=== PATIENT | female | born 1940 | race Caucasian/White ===

== ENCOUNTER → 2020-01-13 15:18 | Outpatient (CLI) | payer MEDICARE, OTHER, SELFPAY ==
[2016-12-24 23:02] VITALS: BMI 30.4
[2020-01-13 17:58] LABS: Absolute Lymphocyte Count 1.56 X10^3/uL (0.83-4.51); Absolute Neutrophil Count 2.5 X10^3/uL (2.0-7.7); Basophil# 0.04 X10^3/uL; Basophil% 0.8 % (0-1); Eosinophil# 0.32 X10^3/uL; Eosinophils% 6.3 % (0-5); Hematocrit 40.8 % (37-47); Hemoglobin 12.7 g/dL (12.0-15.0); Lymphocyte # 1.56 X10^3/ul (4.0); Mean Corp Hgb Conc 31.1 g/dL (32-36); Mean Corpuscular Hgb 28.3 pg (27.0-32.0); Mean Corpuscular Volume 91.1 fL (81-99); Mean Platelet Vol. 9.6 fl (6.2-12.0); Monocyte# 0.63 X10^3/uL; Monocyte% 12.5 % (0-10); NRBC Flagged by Analyzer 0 % (0-5); Neutrophil # 2.47 X10^3/uL (2.7-7.7); Platelet Count 301 K/mm3 (150-450); RBC Distribution Width SD 47.1 fl (35.1-43.9); Red Blood Count 4.48 M/mm3 (4.2-5.4)
[2020-01-14 07:29] LABS: SARS-COV-2 TOTAL ABS Reactive (Nonreactive)
== END ==
PROVIDERS: PCP Family Medicine; Referring Provider Dermatology Pediatric Dermatology; Visit Provider Dermatology Pediatric Dermatology
DX: L30.9 Dermatitis, unspecified (principal)
CPT/HCPCS: 36415; 85025; 86769

== ENCOUNTER → 2020-10-23 09:59 | Outpatient (CLI) | payer MEDICARE, OTHER, SELFPAY | PROVIDERS: PCP Family Medicine; Referring Provider Nurse Practitioner Family; Visit Provider Nurse Practitioner Family | DX: Z01.84 Encounter for antibody response examination (principal) | CPT/HCPCS: 36415; 86769 ==

== ENCOUNTER → 2024-09-24 | Outpatient (CLI) | payer OTHER, MEDICARE, SELFPAY ==
--- NOTE | 2024-09-24 16:54 | CT_ITS ---
PROCEDURE: SINUS/FACIAL BONE REASON FOR EXAM: SINUSITIS AND NASAL CONGESTION TECHNIQUE: CT of the paranasal sinuses without contrast. Coronal and Sagittal reconstruction series were provided. One or more dose reduction techniques were used (e.g., Automated exposure control, adjustment of the mA and/or kV according to patient size, use of iterative reconstruction technique). COMPARISON: None. FINDINGS: Sinuses: [id number] paranasal sinus mucosal thickening. There is complete opacification of the left sphenoid sinus with curvilinear hyperdense material in-situ. This likely represents sequela of inspissated secretions or fungal colonization. There is also mucoperiosteal reaction involving the left sphenoid sinus fitzpatrick. Findings likely secondary to chronic opacification. No air-fluid levels are noted. Bilateral ostiomeatal units are patent. Opacification of the left sphenoethmoidal recess. The right sphenoethmoidal recess and bilateral frontonasal recesses are within normal limits. Soft tissue: Soft tissue planes are within normal limits. The pre maxillary and retro antral soft tissues are within normal limits. Orbits: Bilateral lens replacements. Intracranial contents: Mild generalized volume loss with concordant ventricular enlargement. No extra-axial collection. Turbinates and nasal septum: Turbinates are within normal limits. No significant opacification. Nasal septum is within normal limits Mastoids/Middle Ears: Mastoid air cells are clear. CT/Sinus/Facial Bone IMPRESSION: [id number] paranasal sinus mucosal thickening, most prominent at the left sphenoid sinus with mucoperiosteal reaction. No air-fluid levels. Reading Location: [facility]
== END | disposition home or self-care (01) ==
LOC: CT 16:51
PROVIDERS: PCP Family Medicine; Referring Provider Otolaryngology Otolaryngology/Facial Plastic Surgery; Visit Provider Otolaryngology Otolaryngology/Facial Plastic Surgery
DX: J32.8 Other chronic sinusitis (principal); R09.81 Nasal congestion
CPT/HCPCS: 70486

== ENCOUNTER 2024-09-30 08:28 | Emergency (ER) | payer MEDICARE, OTHER, SELFPAY ==
[2024-09-30 08:28] VITALS: BP 134/103; PULSE 87; RESP 16; TEMP 36.8; O2SAT 100; BMI 27.9
[2024-09-30 08:30] VITALS: BP 134/103; PULSE 87; RESP 16; TEMP 36.8; O2SAT 100
--- NOTE | 2024-09-30 08:54 | CT_ITS ---
PROCEDURE: ABDOMEN/PELVIS W IV CONT ONLY 09/30/2024 REASON FOR EXAM: Lower ABDOMINAL PAIN TECHNIQUE: Abdomen and pelvis CT with intravenous contrast. Coronal and Sagittal reconstruction series were provided. PATIENT PREPARATION: Per protocol ORAL CONTRAST TYPE: None. CONTRAST: 99 cc [id number] One or more dose reduction techniques were used (e.g., Automated exposure control, adjustment of the mA and/or kV according to patient size, use of iterative reconstruction technique. RADIATION DOSE SUMMARY: DLP: 680.07 mGycm COMPARISON: None FINDINGS: Lung bases: Clear. There is postsurgical change of the gastroesophageal junction and proximal stomach, with a 4.5 cm hiatal hernia. Liver: Unremarkable Gallbladder: Surgically absent Spleen: Unremarkable Pancreas: Unremarkable Adrenals: Unremarkable Kidneys: There is a 6.5 cm simple cyst in the upper pole of the right kidney. There is no renal stone or hydronephrosis. Bladder: Unremarkable Reproductive Organs: Unremarkable Bowel: There is a moderate stool load. Small bowel loops are not distended. There is diverticulosis in the descending and sigmoid colon with no visible acute diverticulitis. Appendix: Not demonstrated Lymph nodes: There is no pathologic adenopathy by size criteria. Vasculature: Atherosclerotic calcifications are noted. Peritoneum / Retroperitoneum: There is no free air or free fluid. Phleboliths are noted. Bones: There is no acute bony abnormality. CT/Abdomen/Pelvis W IV Cont ONLY IMPRESSION: There is postsurgical change of the gastroesophageal junction and proximal stom ach, with a 4.5 cm hiatal hernia. There is a 6.5 cm simple cyst in the upper pole of the right kidney. There is diverticulosis in the descending and sigmoid colon with no visible acu te diverticulitis. Reading Location: [facility]
--- NOTE | 2024-09-30 08:54 | EDS_ITS ---
HPI HPI - GI History of Present Illness Chief Complaint: Abd Pain Informant: patient and spouse/S.O. Narrative Narrative: 84-year-old female presenting to the emergency room reporting that urgent care sent her here for her CT of the abdomen and pelvis. Patient states that for many months she has bowel movements but never feels that she really empties out. She notes frequent urinary pressure and experience that again today. She got up early and took her grandson to the airport and then went out to breakfast for eggs nielson and hashbrowns. They went to urgent care where is felt that the patient should come to the emergency for a CT of the abdomen pelvis. She states that when they palpated her abdomen she had a lot of discomfort mostly on the left but generally throughout. She denies any fevers nausea or vomiting. Patient denies dysuria. PFSH PFSH Home Medications ?Medication ?Instructions ?Recorded ?Last Taken ?Type azelastine 137 mcg (0.1 %) nasal 2 spray intranasal DA RADHA PRN 12/14/14 09/30/24 History spray Allergies calcium carbonate 600 mg PO QHS 12/14/1409/29 History coenzyme Q10 100 mg capsule 100 mg PO BID 12/14/1405/15 History (Q-Sorb Co Q-10) fenofibrate nanocrystallized 48 mg 48 mg PO QHS 09/29/24 History tablet psyllium husk (aspartame) 3.4 gram 1 packet PO DAILY # #30 12/16/14 09/29/24 Rx oral powder packet (Metamucil Fiber Singles) acetaminophen 325 mg tablet 325 mg PO DAILY PRN Pain 0 11/21/15 09/30/24 History (Tylenol) pantoprazole 40 mg tablet,delayed 40 mg PO DAILY 12/2409/30/24 History release cholecalciferol (vitamin D3) 25 3,000 unit PO QHS 09/1909/29/24 History mcg (1,000 unit) tablet esomeprazole magnesium 40 mg 40 mg PO DAILY 09/30/24 0
--- NOTE | 2024-09-30 08:54 | ED.VIS.GI ---
HPI HPI - GI History of Present Illness Chief Complaint: Abd Pain Informant: patient and spouse/S.O. Narrative Narrative: 84-year-old female presenting to the emergency room reporting that urgent care sent her here for her CT of the abdomen and pelvis. Patient states that for many months she has bowel movements but never feels that she really empties out. She notes frequent urinary pressure and experience that again today. She got up early and took her grandson to the airport and then went out to breakfast for eggs nielson and hashbrowns. They went to urgent care where is felt that the patient should come to the emergency for a CT of the abdomen pelvis. She states that when they palpated her abdomen she had a lot of discomfort mostly on the left but generally throughout. She denies any fevers nausea or vomiting. Patient denies dysuria. PFSH PFSH Home Medications ?Medication ?Instructions ?Recorded ?Last Taken ?Type azelastine 137 mcg (0.1 %) nasal 2 spray intranasal DAILY PRN 12/14/14 09/30/24 History spray Allergies calcium carbonate 600 mg PO QHS 12/14/14 09/29/24 History coenzyme Q10 100 mg capsule 100 mg PO BID 12/14/14 09/30/24 History (Q-Sorb Co Q-10) fenofibrate nanocrystallized 48 mg 48 mg PO QHS 12/14/14 09/29/24 History tablet psyllium husk (aspartame) 3.4 gram 1 packet PO DAILY ##30 12/16/14 09/29/24 Rx oral powder packet (Metamucil Fiber Singles) acetaminophen 325 mg tablet 325 mg PO DAILY PRN Pain 11/21/15 09/30/24 History (Tylenol) pantoprazole 40 mg tablet,delayed 40 mg PO DAILY 12/24/16 09/30/24 History release cholecalciferol (vitamin D3) 25 3,000 unit PO QHS 09/30/24 09/29/24 History mcg (1,000 unit) tablet esomeprazole magnesium 40 mg 40 mg PO DAILY 09/30/24 09/30/24 History capsule,delayed release hydrochlorothiazide 12.5 mg capsule 12.5 mg PO DAILY 09/30/24 09/30/24 History loratadine 10 mg tablet 10 mg PO DAILY 09/30/24 09/30/24 History losartan 100 mg tablet 100 mg PO DAILY 09/30/24 09/30/24 History nitrofurantoin macrocrystal 100 mg 100 mg PO BID 5 days #10 caps 09/30/24 Unknown Rx capsule pyridoxine (vitamin B6) 100 mg 100 mg PO QHS 09/30/24 09/29/24 History tablet sertraline 25 mg tablet 25 mg PO DAILY 09/30/24 09/30/24 History verapamil 360 mg 24 hr 360 mg PO QHS 09/30/24 09/29/24 History capsule,extended release Allergy/AdvReac Type Severity Reaction Status Date / Time house dust Allergy NEEDS Verified 01/12/22 10:55 FOLLOW-UP pollen extracts Allergy Other Verified 12/24/16 23:04 tree and shrub pollen Allergy Other Verified 12/24/16 23:04 Social History Smoking Status: Never smoker ROS ROS ED Constitutional Constitutional ED: Denies chills, fever(s) or weight loss Eyes Eyes: Denies change in vision or diplopia ENT ENT ED: Denies ear pain, rhinorrhea or sore throat Cardiovascular Cardiovascular: Denies chest pain, orthopnea, palpitations or racing heartbeat Respiratory/Chest Respiratory/Chest: Denies cough, dyspnea or orthopnea Gastrointestinal Gastrointestinal: Reports abdominal pain; Denies diarrhea, nausea or vomiting Genitourinary Genitourinary ED: Reports urinary frequency; Denies dysuria or hematuria Musculoskeletal Musculoskeletal: Denies arthralgias or myalgias Integumentary Denies abscess or rash Neurologic Neurologic: Denies headache(s) or weakness Psychiatric Psychiatric: Denies anxiety, depression, suicidal ideation or suicidal thoughts Endocrine Endocrinology: Denies polydipsia, polyphagia or polyuria Allergic/Immunologic Allergic/Immunologic ED: Denies mouth swelling, tongue swelling or urticaria EXAM Physical Exam Const Vital Signs: 09/30/24 08:28 09/30/24 08:30 09/30/24 10:21 Temperature 98.2 F 98.2 F 99.2 F H Temperature Source Oral Oral Oral Pulse Rate 87 87 74 Respiratory Rate 16 16 18 Blood Pressure 134/103 H 134/103 H 158/77 H Blood Pressure Mean 113 113 104 Pulse Ox 100 100 97 Oxygen Delivery Method Room Air Room Air Room Air Positive well nourished and well developed General Appearance ED: well developed HEENT Reports normocephalic, head/scalp atraumatic and moist mucous membranes Eyes PERRL and EOMs intact bilaterally Neck no lymphadenopathy, supple and no JVD Resp normal respiratory effort and clear to auscultation bilaterally Cardio regular rate, regular rhythm and no murmurs GI GI Narrative: The abdomen is soft with normal bowel sounds throughout. Generally tender to palpation without involuntary or voluntary guarding and no rebound tenderness Auscultation: normoactive bowel sounds Palpation: soft, tender and rebound tenderness present; Negative for guarding Back/Spine no CVA tenderness and normal ROM Extremity normal to inspection General Extremety ED: Negative for edema General Extremity: Negative for edema Neuro oriented x3 and CN's II-XII intact bilaterally Sensorium / Orientation: alert Motor Exam: strength 5/5 throughout Psych mental status grossly normal Mood & Affect: Negative for depressed or tearful Skin no rashes or lesions noted and no wounds MDM MDM MDM Narrative Medical decision making narrative: Differential diagnosis includes but not limited to diverticulitis colitis UTI urinary retention constipation bowel obstruction volvulus hernia Basic blood work is obtained essentially unremarkable glucose of 102 normal creatinine white count 4.3. Urinalysis with 2+ bacteria positive leukocyte esterase negative nitrates 0-5 white cells 0 red cells 0 squamous cells. This will be sent for culture. CT of the abdomen pelvis does not demonstrate anything acute. Reviewing the above workup with the patient she now notes that she fell last Monday while working in her basement. She wonders if she may have strained a muscle. She states that her muscles typically hurt because she has fibromyalgia. I do not think it is unreasonable to do a short course of Macrobid while we await the culture. Patient to follow-up with primary care 3 to 5 days if not improving return if worsening. History & Record Review Discussion w/independent historian: Patient and Significant other Additional record(s) reviewed:: Prior ED visit and Prior labs Lab Data Attestation: I reviewed the patient's lab results. Labs: Laboratory Results - last 24 hr 09/30/24 09/30/24 09:09 09:10 WBC 4.3 L RBC 4.55 Hgb 13.0 Hct 40.8 MCV 89.7 MCH 28.6 MCHC 31.9 L RDW Std Deviation 45.1 H RDW Coeff of Jai 13.9 Plt Count 242 MPV 8.8 Immature Gran % (Auto) 0.200 Neut % (Auto) 47.8 Lymph % (Auto) 33.6 [place] % (Auto) 13.1 H Eos % (Auto) 4.4 Baso % (Auto) 0.9 Absolute Neuts (auto) 2.1 Absolute Lymphs (auto) 1.46 Nucleated RBC % 0 Sodium 139 Potassium 3.8 Chloride 100 Carbon Dioxide 27.1 Anion Gap 12 BUN 17 Creatinine 0.99 Estim Creat Clear Calc 37.06 L Est GFR (MDRD) Non-Af 56 L BUN/Creatinine Ratio 17.4 Glucose 102 H Calcium 10.2 Total Bilirubin 0.35 AST 23 ALT 15 Alkaline Phosphatase 56 Total Protein 6.9 Albumin 4.3 Globulin 2.6 Albumin/Globulin Ratio 1.6 Urine Color Yellow Urine Clarity Clear Urine pH 7.0 Ur Specific [place] 1.010 Urine Protein Negative Urine Glucose (UA) Normal Urine Ketones Negative Urine Occult Blood Negative Urine Nitrite Negative Urine Bilirubin Negative Urine Urobilinogen Normal Ur Leukocyte Esterase 25 H Urine RBC 0 SEEN Urine WBC 0-5 SEEN Ur Squamous Epith Cells 0 SEEN Urine Bacteria 2+ Urine Mucus 0 SEEN Radiography Diagnostic Testing: Clinical Impression(s) from Imaging Studies Abdomen/Pelvis CT 09/30/24 08:54 IMPRESSION: There is postsurgical change of the gastroesophageal junction and proximal stomach, with a 4.5 cm hiatal hernia. There is a 6.5 cm simple cyst in the upper pole of the right kidney. There is diverticulosis in the descending and sigmoid colon with no visible acute diverticulitis. Reading [facility] Dis[facility] Triage Chief Complaint: Abd Pain Other Complaint: Complaint ED Provider: Ty Hays Dx/Rx/DC Orders Clinical Impression: Abdominal pain, Bacteriuria Instructions: Abdominal Pain Prescriptions: New nitrofurantoin macrocrystal 100 mg capsule 100 mg PO BID 5 Days Qty: 10 0RF Rx Instructions: must administer with a meal/food No Action fenofibrate nanocrystallized 48 MG tablet 48 mg PO QHS Patient Comments: cholesterol calcium carbonate 600 MG tablet 600 mg PO QHS Patient Comments: vitamin coenzyme Q10 [Q-Sorb Co Q-10] 100 MG capsule 100 mg PO BID Patient Comments: vitamin azelastine 1 SPRAY aerosol,spray 2 spray intranasal DAILY PRN (Reason: Allergies) Patient Comments: allergies Metamucil Fiber Singles 1 PACKET powder in packet 1 packet PO DAILY Qty: 30 0RF Patient Comments: constipation, PT TAKES IN AFTERNOON acetaminophen [Tylenol] 325 MG tablet 325 mg PO DAILY PRN (Reason: Pain) Patient Comments: PT TAKES ROUTINELY IN MORNING, SOMETIMES AFTERNOON pantoprazole 40 MG tablet 40 mg PO DAILY cholecalciferol (vitamin D3) 25 mcg (1,000 unit) tablet 3,000 unit PO QHS pyridoxine (vitamin B6) 100 mg tablet 100 mg PO QHS verapamil 360 mg capsule,ext rel. pellets 24 hr 360 mg PO QHS sertraline 25 mg tablet 25 mg PO DAILY losartan 100 mg tablet 100 mg PO DAILY loratadine 10 mg tablet 10 mg PO DAILY esomeprazole magnesium 40 mg capsule,delayed release(DR/EC) 40 mg PO DAILY hydrochlorothiazide 12.5 mg capsule 12.5 mg PO DAILY Primary Care Provider: Carlos Aguilar Referrals: Carlos Aguilar MD [Primary Care Provider] - 3-5 Days if not improving Print Language: Italian Disposition Disposition: Home, Self Care
[2024-09-30] MEDS: 0.9% Normal Saline (1000mL) 1,000 ML 999 ML IV (09:13)
[2024-09-30 09:21] LABS: Mucous, Urine 0 SEEN /hpf (<or=2+); Red Blood Cells-Urine 0 SEEN /hpf (0-5); Squamous Epithelial Cells - UA 0 SEEN /hpf (5-10)
[2024-09-30 09:23] LABS: Absolute Lymphocyte Count 1.46 X10^3/uL (0.83-4.51); Absolute Neutrophil Count 2.1 X10^3/uL (2.0-7.7); Basophil# 0.04 X10^3/uL; Basophil% 0.9 % (0-1); Eosinophil# 0.19 X10^3/uL; Eosinophils% 4.4 % (0-5); Hematocrit 40.8 % (37-47); Lymphocyte # 1.46 X10^3/ul (0.83-4.51); Lymphocyte % 33.6 % (19-41); Mean Corp Hgb Conc 31.9 g/dL (32-36); Mean Corpuscular Hgb 28.6 pg (27.0-32.0); Mean Corpuscular Volume 89.7 fL (81-99); Mean Platelet Vol. 8.8 fl (6.2-12.0); Monocyte# 0.57 X10^3/uL; Monocyte% 13.1 % (0-10); NRBC Flagged by Analyzer 0 % (0-5); Neutrophil # 2.07 X10^3/uL (2.7-7.7); Neutrophil % 47.8 % (47-70); Platelet Count 242 K/mm3 (150-450); RBC Distribution Width CV 13.9 % (11.6-14.6); RBC Distribution Width SD 45.1 fl (35.1-43.9); Red Blood Count 4.55 M/mm3 (4.2-5.4); White Blood Count 4.3 K/mm3 (4.4-11.0)
[2024-09-30 09:23] LABS: Color, Urine Yellow (Yellow); Glucose, Dipstick Normal (Normal); Ketone-Dipstick Negative (Negative); Leukocyte Esterase-Dipstick 25 /ul (Negative); Nitrite-Dipstick Negative (Negative); Occult Blood-Urine Negative /ul (Negative); Protein-Dipstick Negative (Negative); Urine Bilirubin Dipstick Negative (Negative); Urine Clarity Clear (Clear); Urine Urobilinogen Normal (Normal)
[2024-09-30 09:29] LABS: Bacteria 2+ /hpf (None Seen)
[2024-09-30 09:30] LABS: White Blood Cells 0-5 SEEN /hpf (0-5)
[2024-09-30 09:46] LABS: ALB/GLOB Ratio 1.6 RATIO (0.9-2.4); AST(SGOT) 23 U/L (<=31); Alanine Aminotransfer ALT/SGPT 15 U/L (<=34); Albumin, Serum 4.3 g/dL (3.4-4.8); Alkaline Phosphatase 56 U/L (35-104); Anion Gap 12 (5-15); BUN 17 mg/dL (4-19); BUN/Creat Ratio 17.4 RATIO (10-20); Calcium,Total 10.2 mg/dL (7.6-11.0); Carbon Dioxide 27.1 mmol/L (21.0-32.0); Chloride 100 mmol/L (98-108); Creatinine, Serum 0.99 mg/dL (0.70-1.20); EST Glomerular Filtration Rate 56 (>60); Estimated Creatinine Clearance 37.06 ml/min (50-250); Globulin 2.6 g/dL (2.2-4.2); Glucose 102 mg/dL (70-99); Potassium 3.8 mmol/L (3.3-5.1); Protein, Total 6.9 g/dL (5.9-8.4); Sodium Level 139 mmol/L (133-145); Total Bilirubin 0.35 mg/dL (0.00-1.30)
[2024-09-30 10:21] VITALS: BP 158/77; PULSE 74; RESP 18; TEMP 37.3; O2SAT 97
--- NOTE | 2024-09-30 11:28 | ED.RN ---
500 ml NS bolus infused from 1 L bag
== END 2024-09-30 11:28 | disposition home or self-care (01) ==
PROVIDERS: Emergency Provider Emergency Medicine; PCP Family Medicine; Visit Provider Emergency Medicine
DX: R10.9 Unspecified abdominal pain (principal); R82.71 Bacteriuria
CPT/HCPCS: 74177; 80053; 81001; 85025; 87077; 87086; 87088; 87186; 96360; 99285; Q9967; A4216